=== PATIENT | male | born 1960 | race Hispanic/Latino ===

== ENCOUNTER → 2020-04-01 | Outpatient (CLI) | payer BC ==
[~2020-04-01] MED LIST: ALBUTEROL HFA; ATOR10 PO; LISI1TAB32 PO; METF-526 PO
== END | disposition home or self-care (01) ==
LOC: RAH 09:28
PROVIDERS: ATTEND Internal Medicine
DX: K21.9 Gastro-esophageal reflux disease without esophagitis (principal); K22.5 Diverticulum of esophagus, acquired
CPT/HCPCS: 74240